=== PATIENT | male | born 1960 | race American Indian/Alaskan Native ===

== ENCOUNTER 2021-10-28 15:15 | Emergency (ER) | payer MEDICARE, OTHER ==
[2021-10-28 15:20] VITALS: BP 110/72
--- NOTE | 2021-10-28 15:34 | Event Note ---
Date: 10/28/21 The patient was evaluated in the emergency department for symptoms described in the history of present illness. He/she was evaluated in the context of the global COVID-19 pandemic, which necessitated consideration that the patient might be at risk for infection with the virus that causes COVID-19. Institutional protocols and algorithms that pertain to the evaluation of patients at risk for COVID-19 are in a state of rapid change based on information released by regulatory bodies including the CDC and federal and state organizations. These policies and algorithms were followed during the patient's care in the emergency department. Please note that these policies, procedures and recommendations changed on a rapid basis. EMS documentation not available at time of chart dictation Verbal report received from emergency medical services. 61-year-old gentleman, who may be homeless/undomiciled, brought to the hospital by emergency medical services after he reportedly walked into an insurance store, sat down on the couch, and bystanders called 911. The patient is awake, but confused, and speaking nonsensically. He moves 4 extremities spontaneously. EMS reports normal vital signs and Accu-Chek to myself. Appropriate screening laboratory studies and EKG ordered. Detailed history and physical examination, additional diagnostics as per treating provider. Vital Signs 10/28/21 15:19 Temperature 99.0 F Pulse Rate 84 Respiratory 16 Rate Blood Pressure 110/72 [Right] O2 Sat by Pulse 98 Oximetry
[2021-10-28 16:56] LABS: Basophils % (Auto) 0.7 % (0.0-1.8); Eosinophils # (Auto) 0.3 K/mm3 (0.0-0.4); Eosinophils % (Auto) 7.7 % (0.0-4.3); Hemoglobin 12.4 gm/dl (11.8-15.2); Lymphocytes # (Auto) 1.4 K/mm3 (1.2-5.4); Lymphocytes % (Auto) 33.7 % (13.4-35.0); Mean Corpuscular HGB Conc 33 % (32-34); Mean Corpuscular Volume 91 fl (84-94); Monocytes # (Auto) 0.5 K/mm3 (0.0-0.8); Monocytes % (Auto) 11.3 % (0.0-7.3); Platelet Count 247 K/mm3 (140-440); Red Cell Distribution Width 15.7 % (13.2-15.2)
[2021-10-28 17:00] LABS: INR 0.81 (0.87-1.13)
[2021-10-28 17:09] LABS: Alanine Aminotransferase 52 units/L (7-56); Albumin 3.6 g/dL (3.9-5); BUN/Creatinine Ratio 32; Blood Urea Nitrogen 29 mg/dL (9-20); Calcium 9.2 mg/dL (8.4-10.2); Hemolysis Index 25
== END 2021-10-28 21:36 | disposition left against medical advice (07) ==
LOC: ED 15:15
DX: R50.9 Fever, unspecified (principal); Z53.21 Procedure and treatment not carried out due to patient leaving prior to being seen by health care provider
CPT/HCPCS: 36415; 80053; 80320; 82140; 82550; 84443; 85025; 85610; G0480

== ENCOUNTER 2021-10-30 10:58 | Emergency (ER) | payer MEDICARE, OTHER ==
[2021-10-30] MEDS ORDERED: SODIUM CHLORIDE 0.9% 1000 ML 1,000 ML IV ONE (13:04)
--- NOTE | 2021-10-30 13:10 | Emergency Department Report ---
ED Psych HPI - General Chief Complaint: Altered Mental Status Stated Complaint: AMS Time Seen by Provider: 10/30/21 12:52 Source: patient, police Mode of arrival: Ambulatory Limitations: Other - History of Present Illness Initial Comments: 61-year male with a past medical history of schizophrenia and bipolar disorder brought in by police department because he was urinating outside of [employer] and about this want to have a bowel movement outside of the store. Patient is undomiciled. He was actually seen here on the and had a medical screening exam. At that time he reportedly walked into an insurance store, sat down on the couch, and bystanders called 911. The patient is awake, but confused, and speaking nonsensically but does answer questions when redirected. Eating a meal tray during my evaluation. Adamantly denies suicidal homicidal ideation but does endorse auditory hallucinations. He is not currently on medications. - Related Data Previous Rx's Medication Instructions Recorded Last Taken Type ALBUTEROL NEB's [Proventil 0.083% 2.5 mg IH Q4HRT PRN nebu 06/15/20 Unknown Rx NEBS] Levothyroxine [Synthroid] 75 mcg PO DAILY@0600 tablet 06/15/20 Unknown Rx Melatonin [Melatonin 5MG TAB] 10 mg PO QHS tablet 06/15/20 Unknown Rx QUEtiapine [SEROquel] 25 mg PO QHS tablet 06/15/20 Unknown Rx cloNIDine-TTS PATCH [Catapres-Tts 0.2 mg TD We patch 06/15/20 Unknown Rx 0.2mg Patch] dexAMETHasone [Decadron] 4 mg PO Q12HR tablet 06/15/20 Unknown Rx Allergies Allergy/AdvReac Type Severity Reaction Status Date / Time No Known Allergies Allergy Verified 10/28/21 15:20 ED Review of Systems ROS: Stated complaint: AMS Other details as noted in HPI Comment: Unobtainable due to pts medical conditions ED Past Medical Hx - Past Medical History Hx Hypertension: Yes Hx Deep Vein Thrombosis: No Hx Liver Disease: No Hx Renal Disease: No Hx Psychiatric Treatment: Yes (bipolar) - Surgical History Hx Pacemaker: No Hx Internal Defibrillator: No - Social History Smoking Status: Unknown if ever smoked - Medications Home Medications: Home Medications Medication Instructions Recorded Confirmed Last Taken Type ALBUTEROL NEB's [Proventil 0.083% 2.5 mg IH Q4HRT PRN nebu 06/15/20 Unknown Rx NEBS] Levothyroxine [Synthroid] 75 mcg PO DAILY@0600 tablet 06/15/20 Unknown Rx Melatonin [Melatonin 5MG TAB] 10 mg PO QHS tablet 06/15/20 Unknown Rx QUEtiapine [SEROquel] 25 mg PO QHS tablet 06/15/20 Unknown Rx cloNIDine-TTS PATCH [Catapres-Tts 0.2 mg TD We patch 06/15/20 Unknown Rx 0.2mg Patch] dexAMETHasone [Decadron] 4 mg PO Q12HR tablet 06/15/20 Unknown Rx ED Physical Exam - General Limitations: Altered Mental Status - Other Other exam information: General: No acute distress, disheveled Head: Atraumatic Eyes: normal appearance ENT: Moist mucous membranes Neck: Normal appearance, no midline tenderness Chest: Clear to auscultation bilaterally CV: Regular rate and rhythm Abdomen: Soft, normal bowel sounds, nontender, nondistended, no rebound or guarding Back: Normal inspection Extremity: Normal inspection, full range of motion Neuro: Alert, cooperative Psych: Disorganized thoughts Skin: No rash ED Course Vital Signs 10/30/21 10/30/21 10/30/21 13:19 13:39 17:41 Temperature 97.2 F L 97.3 F L Pulse Rate 89 85 Respiratory 18 18 Rate Blood Pressure 140/73 119/59 [Right] O2 Sat by Pulse 97 97 98 Oximetry 10/30/21 10/30/21 10/31/21 20:00 22:46 00:00 Temperature 97.7 F 98.6 F Pulse Rate 78 112 H Respiratory 20 18 Rate Blood Pressure 122/69 137/69 [Right] O2 Sat by Pulse 98 98 97 Oximetry 10/31/21 10/31/21 10/31/21 00:30 22:00 22:54 Temperature 98.0 F Pulse Rate 90 102 H Respiratory 18 Rate Blood Pressure 114/71 [Right] O2 Sat by Pulse 98 98 Oximetry ED Medical Decision Making - Lab Data Result diagrams: 10/30/21 13:43 10/30/21 13:43 Lab Results 10/30/21 10/30/21 10/30/21 Range/Units 13:43 13:43 13:43 WBC 4.2 L (4.5-11.0) K/mm3 RBC 4.15 (3.65-5.03) M/mm3 Hgb 11.9 (11.8-15.2) gm/dl Hct 37.0 (35.5-45.6) % MCV 89 (84-94) fl MCH 29 (28-32) pg MCHC 32 (32-34) % RDW 14.9 (13.2-15.2) % Plt Count 255 (140-440) K/mm3 Lymph % (Auto) 26.8 (13.4-35.0) % [place] % (Auto) 6.6 (0.0-7.3) % Eos % (Auto) 5.2 H (0.0-4.3) % Baso % (Auto) 0.4 (0.0-1.8) % Lymph # (Auto) 1.1 L (1.2-5.4) K/mm3 [place] # (Auto) 0.3 (0.0-0.8) K/mm3 Eos # (Auto) 0.2 (0.0-0.4) K/mm3 Baso # (Auto) 0.0 (0.0-0.1) K/mm3 Seg Neutrophils % 61.0 (40.0-70.0) % Seg Neutrophils # 2.6 (1.8-7.7) K/mm3 Sodium 136 L (137-145) mmol/L Potassium 4.4 (3.6-5.0) mmol/L Chloride 100.0 (98-107) mmol/L Carbon Dioxide 26 (22-30) mmol/L Anion Gap 14 mmol/L BUN 24 H (9-20) mg/dL Creatinine 0.8 (0.8-1.3) mg/dL Estimated GFR > 60 ml/min BUN/Creatinine Ratio 30 % Glucose 136 H (75-100) mg/dL Calcium 9.1 (8.4-10.2) mg/dL Total Bilirubin < 0.20 (0.1-1.2) mg/dL AST 38 (5-40) units/L ALT 40 (7-56) units/L Alkaline Phosphatase 119 (35-129) units/L Total Creatine Kinase 1014 H (55-170) units/L Total Protein 7.0 (6.3-8.2) g/dL Albumin 3.7 L (3.9-5) g/dL Albumin/Globulin Ratio 1.1 % Plasma/Serum Alcohol < 0.01 (0-0.07) % - Medical Decision Making 61-year-old male with disorganized speech likely at his baseline with history of schizophrenia and bipolar. Patient had elevated CK level which is decreased today. 1 liter normal saline provided. Patient tolerated p.o. and fluids. Awaiting mental health evaluation to determine if patient meets criteria for 1013. At this time he does not endorse suicidal homicidal ideation and is not currently taking psychiatric medications Critical Care Time: No Critical care attestation.: If time is entered above; I have spent that time in minutes in the direct care of this critically ill patient, excluding procedure time. ED Disposition Clinical Impression: Schizophrenia, Bipolar disorder, Disorganized behavior, Medical clearance for psychiatric admission Disposition: [address] [place] [address] Is pt being admited?: No Condition: Stable Referrals: PRIMARY CARE, [Primary Care Provider] - 3-5 Days
[2021-10-30 14:07] LABS: Basophils % (Auto) 0.4 % (0.0-1.8); Eosinophils # (Auto) 0.2 K/mm3 (0.0-0.4); Eosinophils % (Auto) 5.2 % (0.0-4.3); Hemoglobin 11.9 gm/dl (11.8-15.2); Lymphocytes # (Auto) 1.1 K/mm3 (1.2-5.4); Lymphocytes % (Auto) 26.8 % (13.4-35.0); Mean Corpuscular HGB Conc 32 % (32-34); Mean Corpuscular Volume 89 fl (84-94); Monocytes # (Auto) 0.3 K/mm3 (0.0-0.8); Monocytes % (Auto) 6.6 % (0.0-7.3); Platelet Count 255 K/mm3 (140-440); Red Blood Count 4.15 M/mm3 (3.65-5.03); Red Cell Distribution Width 14.9 % (13.2-15.2)
[2021-10-30 14:27] LABS: Alanine Aminotransferase 40 units/L (7-56); Albumin 3.7 g/dL (3.9-5); BUN/Creatinine Ratio 30; Blood Urea Nitrogen 24 mg/dL (9-20); Calcium 9.1 mg/dL (8.4-10.2); Hemolysis Index 7
[2021-10-30 19:41] LABS: Bilirubin,Urine NEG (Negative); Blood,Urine NEG (Negative); Color,Urine Yellow (Yellow); Protein,Urine <15 mg/dL mg/dL (Negative); RBC,Urine < 1.0 /HPF (0.0-6.0); Urobilinogen,Urine < 2.0 mg/dL (<2.0)
[2021-10-30 19:54] LABS: Amphetamine Screen,Urine Negative; Benzodiazepines Screen,Urine Negative; Cannabinoid Screen,Urine Negative; Cocaine Screen,Urine Negative; Methadone Screen,Urine Negative; Opiate Screen,Urine Negative
--- NOTE | 2021-10-31 10:30 | Consultation ---
History of Present Illness - Reason for Consult Consult date: 10/31/21 Reason for consult: disorganized thoughts - History of Present Psychiatric Illness The patient was seen today. He was brought to ER by police for urinating outside of [employer]. During my evaluation of the patient, he is very disorganized, he is responding to internal stimuli. He is pacing, fidgety, and pointing at things not there. He appears somewhat paranoid. He is peeping, and then walks back and point. The patient admits to hearing voices. His speech is so disorganized I could not make out what he was saying. He says "my passed," he then peeps around the corner, points, then moves back in the room quickly. He does deny SI/HI. REVIEW OF SYSTEMS Constitutional: Negative for weight loss ENT: Runny note Respiratory: Cough All other systems reviewed and are negative MENTAL STATUS EXAMINATION General Appearance and Behavior: Age appropriate, good hygiene, wearing appropriate clothes. anxious, fidgety, pacing Cooperation: Cooperative Psychomotor Behavior: Psychomotor normal Mood: okay Affect and affective range: Congruent with stated mood Thought Process: disorganized Thought Content: hallucinations, responding to internal stimuli Speech: nonsensical, disorganized Suicidal Ideation: Denies Homicidal Ideation: Denies Hallucinations: Auditory Delusions: Paranoid Impulse Control: Limited Insight and Judgment: poor insight and fair judgment Memory: poor Attention: distracted Orientation: confused Assessment (1)Schizophrenia Current Visit: Yes Status: Acute Treatment Plan 1013 Seroquel 25mg po BID Mirtazepine 7.5 mg po qhs Medical: Per primary Disposition: Recommend acute psychiatric treatment Will follow. Thanks. Case staffed with Dr. Boyle Medications and Allergies Allergies Allergy/AdvReac Type Severity Reaction Status Date / Time No Known Allergies Allergy Verified 10/28/21 15:20 Home Medications Medication Instructions Recorded Confirmed Last Taken Type ALBUTEROL NEB's [Proventil 0.083% 2.5 mg IH Q4HRT PRN nebu 06/15/20 Unknown Rx NEBS] Levothyroxine [Synthroid] 75 mcg PO DAILY@0600 tablet 06/15/20 Unknown Rx Melatonin [Melatonin 5MG TAB] 10 mg PO QHS tablet 06/15/20 Unknown Rx QUEtiapine [SEROquel] 25 mg PO QHS tablet 06/15/20 Unknown Rx cloNIDine-TTS PATCH [Catapres-Tts 0.2 mg TD We patch 06/15/20 Unknown Rx 0.2mg Patch] dexAMETHasone [Decadron] 4 mg PO Q12HR tablet 06/15/20 Unknown Rx Mental Status Exam - Vital signs Last Vital Signs Temp 98.6 F 10/31/21 00:00 Pulse 90 10/31/21 00:30 Resp 18 10/31/21 00:00 BP 137/69 10/31/21 00:00 Pulse Ox 97 10/31/21 00:00 Results Result Diagrams: 10/30/21 13:43 10/30/21 13:43 Abnormal lab results 10/30/21 10/30/21 Range/Units 13:43 13:43 WBC 4.2 L (4.5-11.0) K/mm3 Eos % (Auto) 5.2 H (0.0-4.3) % Lymph # (Auto) 1.1 L (1.2-5.4) K/mm3 Sodium 136 L (137-145) mmol/L BUN 24 H (9-20) mg/dL Glucose 136 H (75-100) mg/dL Total Creatine Kinase 1014 H (55-170) units/L Albumin 3.7 L (3.9-5) g/dL All other labs normal.
[2021-10-31] MEDS ORDERED: LORazepam 2 MG/ML VIAL IM PRN (12:31)
[2021-10-31] MEDS ORDERED: ALBUTEROL 2.5 MG/3 ML NEBU IH PRN (12:31)
[2021-10-31] MEDS ORDERED: ONDANSETRON 4 MG ODT TAB PO PRN (12:31)
[2021-10-31] MEDS ORDERED: DEXTROSE 50% IN WATER (25GM) 50 ML SYRINGE IV PRN (12:32)
[2021-10-31] MEDS ORDERED: chlordiazePOXIDE 25 MG CAP PO PRN ×2 (12:32)
[2021-10-31] MEDS ORDERED: LORazepam 2 MG TAB PO PRN ×2 (12:32)
--- NOTE | 2021-10-31 12:36 | Event Note ---
Date: 10/31/21 The patient was evaluated in the emergency department for symptoms described in the history of present illness. He/she was evaluated in the context of the global COVID-19 pandemic, which necessitated consideration that the patient might be at risk for infection with the virus that causes COVID-19. Institutional protocols and algorithms that pertain to the evaluation of patients at risk for COVID-19 are in a state of rapid change based on information released by regulatory bodies including the CDC and federal and state organizations. These policies and algorithms were followed during the patient's care in the emergency department. Please note that these policies, procedures and recommendations changed on a rapid basis. Laboratory studies, vital signs, nursing documentation, ER documentation, and psychiatric documentation are reviewed and appreciated. Nursing team reports that they have requested patient to be placed in seclusion, for aggressive behavior, that does not respond to de-escalation techniques, verbal techniques or show of force. Patient was therefore placed in seclusion. I performed a [id number] evaluation. He is awake, walking with a steady gait, breathing spontaneously, and in no acute distress The patient is awake and ambulating and does not appear to be in any acute distress. The patient was deemed medically suitable for psychiatric disposition and placement during his initial ER evaluation. The patient continues to remain medically suitable for psychiatric placement and disposition. He is currently pending psychiatric placement. Holding orders are initiated. COVID swab pending to facilitate placement. Vital Signs 10/30/21 10/30/21 10/30/21 13:19 13:39 17:41 Temperature 97.2 F L 97.3 F L Pulse Rate 89 85 Respiratory 18 18 Rate Blood Pressure 140/73 119/59 [Right] O2 Sat by Pulse 97 97 98 Oximetry 10/30/21 10/30/21 10/31/21 20:00 22:46 00:00 Temperature 97.7 F 98.6 F Pulse Rate 78 112 H Respiratory 20 18 Rate Blood Pressure 122/69 137/69 [Right] O2 Sat by Pulse 98 98 97 Oximetry 10/31/21 00:30 Temperature Pulse Rate 90 Respiratory Rate Blood Pressure [Right] O2 Sat by Pulse Oximetry Lab Results 10/30/21 10/30/21 10/30/21 Range/Units 13:43 13:43 13:43 WBC 4.2 L (4.5-11.0) K/mm3 RBC 4.15 (3.65-5.03) M/mm3 Hgb 11.9 (11.8-15.2) gm/dl Hct 37.0 (35.5-45.6) % MCV 89 (84-94) fl MCH 29 (28-32) pg MCHC 32 (32-34) % RDW 14.9 (13.2-15.2) % Plt Count 255 (140-440) K/mm3 Lymph % (Auto) 26.8 (13.4-35.0) % [place] % (Auto) 6.6 (0.0-7.3) % Eos % (Auto) 5.2 H (0.0-4.3) % Baso % (Auto) 0.4 (0.0-1.8) % Lymph # (Auto) 1.1 L (1.2-5.4) K/mm3 [place] # (Auto) 0.3 (0.0-0.8) K/mm3 Eos # (Auto) 0.2 (0.0-0.4) K/mm3 Baso # (Auto) 0.0 (0.0-0.1) K/mm3 Seg Neutrophils % 61.0 (40.0-70.0) % Seg Neutrophils # 2.6 (1.8-7.7) K/mm3 Sodium 136 L (137-145) mmol/L Potassium 4.4 (3.6-5.0) mmol/L Chloride 100.0 (98-107) mmol/L Carbon Dioxide 26 (22-30) mmol/L Anion Gap 14 mmol/L BUN 24 H (9-20) mg/dL Creatinine 0.8 (0.8-1.3) mg/dL Estimated GFR > 60 ml/min BUN/Creatinine Ratio 30 % Glucose 136 H (75-100) mg/dL Calcium 9.1 (8.4-10.2) mg/dL Total Bilirubin < 0.20 (0.1-1.2) mg/dL AST 38 (5-40) units/L ALT 40 (7-56) units/L Alkaline Phosphatase 119 (35-129) units/L Total Creatine Kinase 1014 H (55-170) units/L Total Protein 7.0 (6.3-8.2) g/dL Albumin 3.7 L (3.9-5) g/dL Albumin/Globulin Ratio 1.1 % Urine Color (Yellow) Urine Turbidity (Clear) Urine pH (5.0-7.0) Ur Specific [place] (1.003-1.030) Urine Protein (Negative) mg/dL Urine Glucose (UA) (Negative) mg/dL Urine Ketones (Negative) mg/dL Urine Blood (Negative) Urine Nitrite (Negative) Urine Bilirubin (Negative) Urine Urobilinogen (<2.0) mg/dL Ur Leukocyte Esterase (Negative) Urine WBC (Auto) (0.0-6.0) /HPF Urine RBC (Auto) (0.0-6.0) /HPF Urine Opiates Screen Urine Methadone Screen Ur Barbiturates Screen Ur Phencyclidine Scrn Ur Amphetamines Screen U Benzodiazepines Scrn Urine Cocaine Screen U Marijuana (THC) Screen Drugs of Abuse Note Plasma/Serum Alcohol < 0.01 (0-0.07) % 10/30/21 10/30/21 Range/Units Unknown Unknown WBC (4.5-11.0) K/mm3 RBC (3.65-5.03) M/mm3 Hgb (11.8-15.2) gm/dl Hct (35.5-45.6) % MCV (84-94) fl MCH (28-32) pg MCHC (32-34) % RDW (13.2-15.2) % Plt Count (140-440) K/mm3 Lymph % (Auto) (13.4-35.0) % [place] % (Auto) (0.0-7.3) % Eos % (Auto) (0.0-4.3) % Baso % (Auto) (0.0-1.8) % Lymph # (Auto) (1.2-5.4) K/mm3 [place] # (Auto) (0.0-0.8) K/mm3 Eos # (Auto) (0.0-0.4) K/mm3 Baso # (Auto) (0.0-0.1) K/mm3 Seg Neutrophils % (40.0-70.0) % Seg Neutrophils # (1.8-7.7) K/mm3 Sodium (137-145) mmol/L Potassium (3.6-5.0) mmol/L Chloride (98-107) mmol/L Carbon Dioxide (22-30) mmol/L Anion Gap mmol/L BUN (9-20) mg/dL Creatinine (0.8-1.3) mg/dL Estimated GFR ml/min BUN/Creatinine Ratio % Glucose (75-100) mg/dL Calcium (8.4-10.2) mg/dL Total Bilirubin (0.1-1.2) mg/dL AST (5-40) units/L ALT (7-56) units/L Alkaline Phosphatase (35-129) units/L Total Creatine Kinase (55-170) units/L Total Protein (6.3-8.2) g/dL Albumin (3.9-5) g/dL Albumin/Globulin Ratio % Urine Color Yellow (Yellow) Urine Turbidity Clear (Clear) Urine pH 7.0 (5.0-7.0) Ur Specific [place] 1.016 (1.003-1.030) Urine Protein <15 mg/dl (Negative) mg/dL Urine Glucose (UA) Neg (Negative) mg/dL Urine Ketones Neg (Negative) mg/dL Urine Blood Neg (Negative) Urine Nitrite Neg (Negative) Urine Bilirubin Neg (Negative) Urine Urobilinogen < 2.0 (<2.0) mg/dL Ur Leukocyte Esterase Neg (Negative) Urine WBC (Auto) 1.0 (0.0-6.0) /HPF Urine RBC (Auto) < 1.0 (0.0-6.0) /HPF Urine Opiates Screen Negative Urine Methadone Screen Negative Ur Barbiturates Screen Negative Ur Phencyclidine Scrn Negative Ur Amphetamines Screen Negative U Benzodiazepines Scrn Negative Urine Cocaine Screen Negative U Marijuana (THC) Screen Negative Drugs of Abuse Note Disclamer Plasma/Serum Alcohol (0-0.07) %
[2021-10-31] MEDS: QUEtiapine 25 MG TAB PO SCH ×2 (13:11→21:54)
[2021-10-31 14:12] LABS: Mucus,Urine FEW /HPF
[2021-10-31] MEDS ORDERED: MIRTAZAPINE 15 MG TAB PO SCH (22:00)
[2021-11-01] MEDS ORDERED: LEVOTHYROXINE 75 MCG TAB PO SCH (06:00)
[2021-11-01] MEDS ORDERED: MULTIVITAMINS ,THERAPEUTIC TAB PO SCH (10:00)
[2021-11-01] MEDS ORDERED: FOLIC ACID 1 MG TAB PO SCH (10:00)
[2021-11-01] MEDS: QUEtiapine 25 MG TAB PO SCH (10:08)
--- NOTE | 2021-11-01 11:51 | Progress Note ---
Subjective - Reason for Consult Consult date: 11/01/21 Reason for consult: mental health evaluation - Chief Complaint Chief complaint: The patient was seen this morning. He was pacing the room. The patient states that he came to the ED because he is homeless and that it is cold outside. The patient denies suicidal/homicidal ideation and denies hallucinations. REVIEW OF SYSTEMS Constitutional: Negative for weight loss ENT: Runny note Respiratory: Cough All other systems reviewed and are negative MENTAL STATUS EXAMINATION General Appearance and Behavior: Age appropriate, good hygiene, wearing a ppropriate clothes. anxious, fidgety, pacing Cooperation: Cooperative Psychomotor Behavior: Psychomotor normal Mood: okay Affect and affective range: Congruent with stated mood Thought Process: circumstantial Thought Content: reality oriented Speech: Delayed Suicidal Ideation: Denies Homicidal Ideation: Denies Hallucinations: Denies Delusions: Paranoid Impulse Control: Limited Insight and Judgment: poor insight and fair judgment Memory: poor Attention: distracted Orientation: alert and oriented x2 Assessment (1)Schizophrenia Current Visit: Yes Status: Acute Treatment Plan Case management [id number] Seroquel 25mg po BID Mirtazepine 7.5 mg po qhs Medical: Per primary Disposition: Recommend acute psychiatric treatment Will follow. Thanks. Case staffed with Dr. Boyle Medications and Allergies Mental Status Exam - Vital signs Last Vital Signs Temp 98.0 F 10/31/21 22:54 Pulse 102 H 10/31/21 22:54 Resp 18 10/31/21 22:54 BP 114/71 10/31/21 22:54 Pulse Ox 98 10/31/21 22:54
--- NOTE | 2021-11-01 12:31 | Event Note ---
Date: 11/01/21 The patient was evaluated in the emergency department for symptoms described in the history of present illness. He/she was evaluated in the context of the global COVID-19 pandemic, which necessitated consideration that the patient might be at risk for infection with the virus that causes COVID-19. Institutional protocols and algorithms that pertain to the evaluation of patients at risk for COVID-19 are in a state of rapid change based on information released by regulatory bodies including the CDC and federal and state organizations. These policies and algorithms were followed during the patient's care in the emergency department. Please note that these policies, procedures and recommendations changed on a rapid basis. Laboratory studies, vital signs, nursing documentation, ER documentation, and psychiatric documentation are reviewed and appreciated. Nursing team reports no acute events this morning or concerns. The patient is awake and ambulating and does not appear to be in any acute distress. The patient was deemed medically suitable for psychiatric disposition and placement during his initial ER evaluation. The patient continues to remain medically suitable for psychiatric placement and disposition. He is currently pending psychiatric placement. The psychiatry team have indicated that they are going to recommend discontinuation of this patient's 1013. Currently, note is in draft status. Once note has been signed, as long as there are no changes in their initial recommendation, patient will be discharged. Vital Signs 10/30/21 10/30/21 10/30/21 13:19 13:39 17:41 Temperature 97.2 F L 97.3 F L Pulse Rate 89 85 Respiratory 18 18 Rate Blood Pressure 140/73 119/59 [Right] O2 Sat by Pulse 97 97 98 Oximetry 10/30/21 10/30/21 10/31/21 20:00 22:46 00:00 Temperature 97.7 F 98.6 F Pulse Rate 78 112 H Respiratory 20 18 Rate Blood Pressure 122/69 137/69 [Right] O2 Sat by Pulse 98 98 97 Oximetry 10/31/21 10/31/21 10/31/21 00:30 22:00 22:54 Temperature 98.0 F Pulse Rate 90 102 H Respiratory 18 Rate Blood Pressure 114/71 [Right] O2 Sat by Pulse 98 98 Oximetry Lab Results 10/30/21 10/30/21 10/30/21 Range/Units 13:43 13:43 13:43 WBC 4.2 L (4.5-11.0) K/mm3 RBC 4.15 (3.65-5.03) M/mm3 Hgb 11.9 (11.8-15.2) gm/dl Hct 37.0 (35.5-45.6) % MCV 89 (84-94) fl MCH 29 (28-32) pg MCHC 32 (32-34) % RDW 14.9 (13.2-15.2) % Plt Count 255 (140-440) K/mm3 Lymph % (Auto) 26.8 (13.4-35.0) % Bent % (Auto) 6.6 (0.0-7.3) % Eos % (Auto) 5.2 H (0.0-4.3) % Baso % (Auto) 0.4 (0.0-1.8) % Lymph # (Auto) 1.1 L (1.2-5.4) K/mm3 Bent # (Auto) 0.3 (0.0-0.8) K/mm3 Eos # (Auto) 0.2 (0.0-0.4) K/mm3 Baso # (Auto) 0.0 (0.0-0.1) K/mm3 Seg Neutrophils % 61.0 (40.0-70.0) % Seg Neutrophils # 2.6 (1.8-7.7) K/mm3 Sodium 136 L (137-145) mmol/L Potassium 4.4 (3.6-5.0) mmol/L Chloride 100.0 (98-107) mmol/L Carbon Dioxide 26 (22-30) mmol/L Anion Gap 14 mmol/L BUN 24 H (9-20) mg/dL Creatinine 0.8 (0.8-1.3) mg/dL Estimated GFR > 60 ml/min BUN/Creatinine Ratio 30 % Glucose 136 H (75-100) mg/dL POC Glucose (70-105) mg/dL Calcium 9.1 (8.4-10.2) mg/dL Total Bilirubin < 0.20 (0.1-1.2) mg/dL AST 38 (5-40) units/L ALT 40 (7-56) units/L Alkaline Phosphatase 119 (35-129) units/L Total Creatine Kinase 1014 H (55-170) units/L Total Protein 7.0 (6.3-8.2) g/dL Albumin 3.7 L (3.9-5) g/dL Albumin/Globulin Ratio 1.1 % Urine Color (Yellow) Urine Turbidity (Clear) Urine pH (5.0-7.0) Ur Specific Holl[place] (1.003-1.030) Urine Protein (Negative) mg/dL Urine Glucose (UA) (Negative) mg/dL Urine Ketones (Negative) mg/dL Urine Blood (Negative) Urine Nitrite (Negative) Urine Bilirubin (Negative) Urine Urobilinogen (<2.0) mg/dL Ur Leukocyte Esterase (Negative) Urine WBC (Auto) (0.0-6.0) /HPF Urine RBC (Auto) (0.0-6.0) /HPF U Epithel Cells (Auto) (0-13.0) /HPF Urine Mucus /HPF Urine Yeast (Budding) /HPF Urine Opiates Screen Urine Methadone Screen Ur Barbiturates Screen Ur Phencyclidine Scrn Ur Amphetamines Screen U Benzodiazepines Scrn Urine Cocaine Screen U Marijuana (THC) Screen Drugs of Abuse Note Plasma/Serum Alcohol < 0.01 (0-0.07) % SARS-CoV-2 (PCR) (Negative) 10/30/21 10/30/21 10/31/21 Range/Units Unknown Unknown 10:30 WBC (4.5-11.0) K/mm3 RBC (3.65-5.03) M/mm3 Hgb (11.8-15.2) gm/dl Hct (35.5-45.6) % MCV (84-94) fl MCH (28-32) pg MCHC (32-34) % RDW (13.2-15.2) % Plt Count (140-440) K/mm3 Lymph % (Auto) (13.4-35.0) % Bent % (Auto) (0.0-7.3) % Eos % (Auto) (0.0-4.3) % Baso % (Auto) (0.0-1.8) % Lymph # (Auto) (1.2-5.4) K/mm3 Bent # (Auto) (0.0-0.8) K/mm3 Eos # (Auto) (0.0-0.4) K/mm3 Baso # (Auto) (0.0-0.1) K/mm3 Seg Neutrophils % (40.0-70.0) % Seg Neutrophils # (1.8-7.7) K/mm3 Sodium (137-145) mmol/L Potassium (3.6-5.0) mmol/L Chloride (98-107) mmol/L Carbon Dioxide (22-30) mmol/L Anion Gap mmol/L BUN (9-20) mg/dL Creatinine (0.8-1.3) mg/dL Estimated GFR ml/min BUN/Creatinine Ratio % Glucose (75-100) mg/dL POC Glucose (70-105) mg/dL Calcium (8.4-10.2) mg/dL Total Bilirubin (0.1-1.2) mg/dL AST (5-40) units/L ALT (7-56) units/L Alkaline Phosphatase (35-129) units/L Total Creatine Kinase (55-170) units/L Total Protein (6.3-8.2) g/dL Albumin (3.9-5) g/dL Albumin/Globulin Ratio % Urine Color Yellow (Yellow) Urine Turbidity Clear (Clear) Urine pH 7.0 (5.0-7.0) Ur Specific Holl[place] 1.016 (1.003-1.030) Urine Protein <15 mg/dl (Negative) mg/dL Urine Glucose (UA) Neg (Negative) mg/dL Urine Ketones Neg (Negative) mg/dL Urine Blood Neg (Negative) Urine Nitrite Neg (Negative) Urine Bilirubin Neg (Negative) Urine Urobilinogen < 2.0 (<2.0) mg/dL Ur Leukocyte Esterase Neg (Negative) Urine WBC (Auto) 1.0 (0.0-6.0) /HPF Urine RBC (Auto) < 1.0 (0.0-6.0) /HPF U Epithel Cells (Auto) < 1.0 (0-13.0) /HPF Urine Mucus Few /HPF Urine Yeast (Budding) Few /HPF Urine Opiates Screen Negative Urine Methadone Screen Negative Ur Barbiturates Screen Negative Ur Phencyclidine Scrn Negative Ur Amphetamines Screen Negative U Benzodiazepines Scrn Negative Urine Cocaine Screen Negative U Marijuana (THC) Screen Negative Drugs of Abuse Note Disclamer Plasma/Serum Alcohol (0-0.07) % SARS-CoV-2 (PCR) Negative (Negative) 10/31/21 Range/Units 22:42 WBC (4.5-11.0) K/mm3 RBC (3.65-5.03) M/mm3 Hgb (11.8-15.2) gm/dl Hct (35.5-45.6) % MCV (84-94) fl MCH (28-32) pg MCHC (32-34) % RDW (13.2-15.2) % Plt Count (140-440) K/mm3 Lymph % (Auto) (13.4-35.0) % Bent % (Auto) (0.0-7.3) % Eos % (Auto) (0.0-4.3) % Baso % (Auto) (0.0-1.8) % Lymph # (Auto) (1.2-5.4) K/mm3 Bent # (Auto) (0.0-0.8) K/mm3 Eos # (Auto) (0.0-0.4) K/mm3 Baso # (Auto) (0.0-0.1) K/mm3 Seg Neutrophils % (40.0-70.0) % Seg Neutrophils # (1.8-7.7) K/mm3 Sodium (137-145) mmol/L Potassium (3.6-5.0) mmol/L Chloride (98-107) mmol/L Carbon Dioxide (22-30) mmol/L Anion Gap mmol/L BUN (9-20) mg/dL Creatinine (0.8-1.3) mg/dL Estimated GFR ml/min BUN/Creatinine Ratio % Glucose (75-100) mg/dL POC Glucose 134 H (70-105) mg/dL Calcium (8.4-10.2) mg/dL Total Bilirubin (0.1-1.2) mg/dL AST (5-40) units/L ALT (7-56) units/L Alkaline Phosphatase (35-129) units/L Total Creatine Kinase (55-170) units/L Total Protein (6.3-8.2) g/dL Albumin (3.9-5) g/dL Albumin/Globulin Ratio % Urine Color (Yellow) Urine Turbidity (Clear) Urine pH (5.0-7.0) Ur Specific [place] (1.003-1.030) Urine Protein (Negative) mg/dL Urine Glucose (UA) (Negative) mg/dL Urine Ketones (Negative) mg/dL Urine Blood (Negative) Urine Nitrite (Negative) Urine Bilirubin (Negative) Urine Urobilinogen (<2.0) mg/dL Ur Leukocyte Esterase (Negative) Urine WBC (Auto) (0.0-6.0) /HPF Urine RBC (Auto) (0.0-6.0) /HPF U Epithel Cells (Auto) (0-13.0) /HPF Urine Mucus /HPF Urine Yeast (Budding) /HPF Urine Opiates Screen Urine Methadone Screen Ur Barbiturates Screen Ur Phencyclidine Scrn Ur Amphetamines Screen U Benzodiazepines Scrn Urine Cocaine Screen U Marijuana (THC) Screen Drugs of Abuse Note Plasma/Serum Alcohol (0-0.07) % SARS-CoV-2 (PCR) (Negative) 11/01/2021; 13: 03 Psychiatry team have formally signed their note and consistently recommend discharge. Patient will be ordered for discharge
[2021-11-01 16:23] VITALS: BP 120/68
== END 2021-11-01 16:23 | disposition home or self-care (01) ==
LOC: ED 10:58
DX: F20.9 Schizophrenia, unspecified (principal); F31.9 Bipolar disorder, unspecified; F20.1 Disorganized schizophrenia; Z13.30 Encounter for screening examination for mental health and behavioral disorders, unspecified; Z20.822 Contact with and (suspected) exposure to COVID-19; I10 Essential (primary) hypertension; Z79.899 Other long term (current) drug therapy
CPT/HCPCS: 36415; 80053; 80307; 81001; 82550; 82962; 85025; 96360; 96361; 99285; J7030; U0003; 80320; 99284; Q0162; G0480